=== PATIENT | male | born 1985 | race Caucasian/White ===

== ENCOUNTER 2017-08-09 15:26 | Emergency (ER) | payer BC, OTHER ==
[2017-08-09] MEDS ORDERED: methylPREDNISolone Sodium Succinate 125 MG/2 ML SDV IM ONE (16:02)
--- NOTE | 2017-08-09 16:02 | EDM.PDOC ---
ED HPI GENERAL MEDICAL PROBLEM - General Chief Complaint: ENT Problem Stated Complaint: ORAL ISSUES Time Seen by Provider: 08/09/17 15:37 Source of Information: Reports: Patient History Limitations: Reports: No Limitations - History of Present Illness INITIAL COMMENTS - FREE TEXT/NARRATIVE: HISTORY AND PHYSICAL: History of present illness: Patient is a 31-year-old male who presents to the emergency room today with complaints of tongue swelling he states he noticed swelling to the left side of his tongue since early this morning. He denies any new exposures, medications or foods. Has no known food or drug allergies. He currently just takes a multivitamin [id number]. There is no airway involvement, pain, drooling, voice changes, throat/ear pain, or difficulty opening/closing his mouth. Denies any fever, chills, SOB, chest pain, diaphoresis, or headache. Denies any abdominal pain, n/v/d, or constipation Review of systems: As per history of present illness and below otherwise all systems reviewed and negative. Past medical history: As per history of present illness and as reviewed below otherwise noncontributory. Surgical history: As per history of present illness and as reviewed below otherwise noncontributory. Social history: No reported history of drug or alcohol abuse. Family history: As per history of present illness and as reviewed below otherwise noncontributory. Physical exam: General: Well-developed and well-nourished 31-year-old male. Alert and oriented. Nontoxic appearing and in no acute distress. HEENT: Atraumatic, normocephalic, pupils equal and reactive bilaterally, negative for conjunctival pallor or scleral icterus, mucous membranes moist, throat clear, the left side of the tongue is mildly swollen. This has no involvement of the uvula, soft palate. Airway is patent and has no difficulty breathing. No involvement of the lips or external mouth. His neck is supple, nontender, trachea midline. No drooling or trismus noted. No meningeal signs Lungs: Clear to auscultation, breath sounds equal bilaterally, chest nontender. Heart: S1S2, regular rate and rhythm without overt murmur Abdomen: Soft, nondistended, nontender. Negative for masses or hepatosplenomegaly. Negative for costovertebral tenderness. Pelvis: Stable nontender. Genitourinary: Deferred. Rectal: Deferred. Skin: Intact, warm, dry. No lesions or rashes noted. Extremities: Atraumatic, negative for cords or calf pain. Neurovascular unremarkable. Neuro: Awake, alert, oriented. Cranial nerves II through XII unremarkable. Cerebellum unremarkable. Motor and sensory unremarkable throughout. Exam nonfocal. Notes: The tongue is spongy and does not appear to have any firm lesions or masses. Patient's tongue swelling does not appear to have any definitive causes. Airway involvement. No swelling or tenderness to the lymphs. Vital signs are stable. Solu-Medrol and Benadryl will be given here. Prescription for Medrol Dosepak and supportive care measures were reviewed. Signs and symptoms that would prompt him to return to the emergency room were reviewed and discussed. Patient and significant other at bedside voice understanding and are agreeable to plan of care. A follow-up appointment has been made for the patient with primary care as he is not established with a clinic at this time. Diagnostics: [] Therapeutics: Solu-Medrol IM, Benadryl Impression: Idiopathic angioedema Plan: 1. Currently you have no of the known risk factors which would cause angioedema (certain medications, allerigc reaction, or exposures). Supportive care measures with steroids and histamines are the first line treatment for this. 2. Please take your Medrol Dosepak as directed. H1 (Benadryl) and H2 (Zantac) antihistamines routinely over the next 2-3 days. Please take both of these medications as directed. You may get nondrowsy Benadryl. 3. Please follow-up with your primary care provider in the next 1-2 days. Return to the ED as needed and as discussed. Definitive disposition and diagnosis as appropriate pending reevaluation and review of above. Onset: Today Duration: Hour(s): - Related Data Allergies Allergy/AdvReac Type Severity Reaction Status Date / Time No Known Allergies Allergy Verified 08/09/17 15:34 Home Meds: Home Meds . [No Known Home Meds] 08/09/17 [History] Past Medical History HEENT History: Reports: None Cardiovascular History: Reports: None Respiratory History: Reports: None Gastrointestinal History: Reports: None Genitourinary History: Reports: None Neurological History: Reports: None Psychiatric History: Reports: None Endocrine/Metabolic History: Reports: None Hematologic History: Reports: None Immunologic History: Reports: None Oncologic (Cancer) History: Reports: None Dermatologic History: Reports: None - Past Surgical History Head Surgeries/Procedures: Reports: None HEENT Surgical History: Reports: None Cardiovascular Surgical History: Reports: None Respiratory Surgical History: Reports: None GI Surgical History: Reports: None Male Surgical History: Reports: None Endocrine Surgical History: Reports: None Neurological Surgical History: Reports: None Musculoskeletal Surgical History: Reports: Other (See Below) Other Musculoskeletal Surgeries/Procedures:: hip surgery as child. Oncologic Surgical History: Reports: None Dermatological Surgical History: Reports: None Social & Family History - Family History Family Medical History: Noncontributory - Tobacco Use Smoking Status *Q: Never Smoker Second Hand Smoke Exposure: No - Caffeine Use Caffeine Use: Reports: None - Recreational Drug Use Recreational Drug Use: No ED ROS ENT - Review of Systems Review Of Systems: ROS reveals no pertinent complaints other than HPI. ED EXAM, ENT - Physical Exam Exam: See Below (See dictation) Course - Vital Signs Last Recorded V/S: Last Vital Signs Temp 97.6 F 08/09/17 15:35 Pulse 57 L 08/09/17 15:35 Resp 18 08/09/17 15:35 BP 134/77 08/09/17 15:35 Pulse Ox 99 08/09/17 15:35 - Orders/Labs/Meds Meds: Medications Discontinued Medications Generic Name Dose Route Start Last Admin Trade Name Ro PRN Reason Stop Dose Admin Diphenhydramine HCl 50 mg 08/09/17 16:07 08/09/17 16:13 Benadryl PO 08/09/17 16:08 50 mg ONETIME ONE Administration Methylprednisolone Sodium Succinate 125 mg 08/09/17 16:02 08/09/17 16:13 Solu-Medrol IM 08/09/17 16:03 125 mg ONETIME ONE Administration Departure - Departure Time of Disposition: 16:05 Disposition: Home, Self-Care 01 Clinical Impression: Idiopathic angioedema Qualifiers: Encounter type: initial encounter Qualified Code(s): T78.3XXA - Angioneurotic edema, initial encounter - Discharge Information Instructions: Angioedema, [id number] Referrals: PCP,None [Primary Care Provider] - Forms: ED Department Discharge Additional Instructions: The following information is given to patients seen in the emergency department who are being discharged to home. This information is to outline your options for follow-up care. We provide all patients seen in our emergency department with a follow-up referral. The need for follow-up, as well as the timing and circumstances, are variable depending upon the specifics of your emergency department visit. If you don't have a primary care physician on staff, we will provide you with a referral. We always advise you to contact your personal physician following an emergency department visit to inform them of the circumstance of the visit and for follow-up with them and/or the need for any referrals to a consulting specialist. The emergency department will also refer you to a specialist when appropriate. This referral assures that you have the opportunity for follow-up care with a specialist. All of these measure are taken in an effort to provide you with optimal care, which includes your follow-up. Under all circumstances we always encourage you to contact your private physician who remains a resource for coordinating your care. When calling for follow-up care, please make the office aware that this follow-up is from your recent emergency room visit. If for any reason you are refused follow-up, please contact the [facility] Emergency Department at and asked to speak to the emergency department charge nurse. [facility] [address] [place] [address] 1. Currently you have no of the known risk factors which would cause angioedema (certain medications, allerigc reaction, or exposures), this is called idopathic angioedema. Supportive care measures with steroids and histamines are the first line treatment for this. 2. Please take your Medrol Dosepak as directed. H1 (Benadryl) and H2 (Zantac) antihistamines routinely over the next 2-3 days. Please take both of these medications as directed. You may get nondrowsy Benadryl. 3. Please follow-up with your primary care provider in the next 1-2 days. Return to the ED as needed and as discussed.
[2017-08-09] MEDS ORDERED: diphenhydrAMINE 50 MG Cap PO ONE (16:07)
== END 2017-08-09 17:10 | disposition home or self-care (01) ==
LOC: MW.ED 15:26
DX: T78.3XXA Angioneurotic edema, initial encounter (principal)
CPT/HCPCS: 96372; 99283; A9270; J2930